=== PATIENT | male | born 1960 | race Caucasian/White ===

== ENCOUNTER 2020-04-14 16:19 | Inpatient (IN) | payer BC, OTHER ==
[~2020-04-14] VITALS: Ht 193 cm; Wt 125.6 kg
--- NOTE | 2020-04-14 16:27 | NUR ---
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
--- NOTE | 2020-04-14 16:35 | NUR ---
THIS IS A 60 YO M W/ C/O INTERMITTENT CP X2 DAYS RADIATING DOWN LT ARM. PT DENIES CARDIAC HX/HOME MEDS. PT REPORTS MILD SOB ASSOCIATED W/ CP. PT REPORTS TAKING 3 ASPIRIN TODAY W/ SOME RELIEF. PT RESTING ON GURNEY W/ CALL LIGHT IN REACH, SIDE RAILS UPX2. TYLER MONTENEGRO AT BEDSIDE FOR ED EVAL.
--- NOTE | 2020-04-14 16:43 | NUR ---
PT TO RAD.
[2020-04-14] MEDS ORDERED: SODIUM CHLORIDE FLUSH 10ML SYR IVF ONE (17:00)
--- NOTE | 2020-04-14 17:04 | NUR ---
PIV STARTED, LABS DRAWN. PT RESTING ON [employer] W/ CALL LIGHT IN REACH, VSS, DILMA.
[2020-04-14 17:13] LABS: BASOPHILS % (AUTO) 0 % (0-1); EOSINOPHILS % (AUTO) 2 % (1-7); LYMPHOCYTES % (AUTO) 17 % (22-44); MEAN CORPUSCULAR HEMOGLOBIN 32.2 pg (27.5-34.5); MEAN CORPUSCULAR HGB CONC 34.3 g/dL (33.2-36.2); MEAN PLATELET VOLUME 9.7 fL (7.4-10.4); MONOCYTES % (AUTO) 7 % (2-9); NEUTROPHILS % (AUTO) 73 % (42-75); PLATELET COUNT 170 x10^3/uL (130-400); RED BLOOD COUNT 5.55 x10^6/uL (4.38-5.82)
[2020-04-14 17:15] LABS: MD NO
[2020-04-14 17:22] LABS: ALANINE AMINOTRANSFERASE 37 U/L (12-78); ALBUMIN 3.9 g/dL (3.4-5.0); ANION GAP 4 mmol/L (5-15); CALCIUM 9.2 mg/dL (8.5-10.1); CHLORIDE 107 mmol/L (98-107); CREATININE 1.04 mg/dL (0.7-1.3)
[2020-04-14 17:27] LABS: ALKALINE PHOSPHATASE 59 U/L (45-117); TOTAL PROTEIN 7.5 g/dL (6.4-8.2)
[2020-04-14 17:32] LABS: TROPONIN I 0.746 ng/mL (0.000-0.045)
[2020-04-14] MEDS ORDERED: HEPARIN 5,000 UNITS/ML, 1ML ONE (17:58)
[2020-04-14] MEDS ORDERED: HEPARIN 25,000 UNITS/250ML PMX 250 ML ONE (17:58)
--- NOTE | 2020-04-14 18:00 | NUR ---
PT UPDATED ON POC FOR ADMIT.
--- NOTE | 2020-04-14 18:12 | NUR ---
HEPARIN STARTED PER PROTOCOL. PT RESTING ON GURNEY W/ CALL LIGHT IN REACH, VSS, NADN.
[2020-04-14] MEDS ORDERED: HEPARIN 25,000 UNITS/250ML PMX 250 ML IV PRN (18:30)
[2020-04-14] MEDS ORDERED: HEPARIN 5,000 UNITS/ML, 1ML IV PRN (18:30)
[2020-04-14] MEDS ORDERED: HEPARIN 5,000 UNITS/ML, 1ML IV ONE (18:30)
--- NOTE | 2020-04-14 18:57 | NUR ---
REPORT GIVEN TO HIRAM HOBBS. PT RESTING ON GURNEY W/ CALL LIGHT IN REACH, VSS, NADN. HEPARIN INFUSING PER PROTOCOL AT 10ML HR OR 1000 UNITS/HR. PT AWAITING ADMIT.
--- NOTE | 2020-04-14 19:26 | NUR ---
PT RESTING ON [place], UPDATED ON POC. CALL LIGHT WITHIN REACH, MONITORING IN PLACE.
[2020-04-14] MEDS ORDERED: CYCLOBENZAPRINE 10 MG TABLET PO PRN (20:30)
[2020-04-14] MEDS ORDERED: morphine SULFATE 10 MG/ML, 1ML IV PRN (20:30)
[2020-04-14] MEDS ORDERED: ONDANSETRON 2MG/ML, 2ML IVPush PRN (20:30)
[2020-04-14] MEDS ORDERED: ACETAMINOPHEN 325 MG TABLET PO PRN (20:30)
[2020-04-14] MEDS ORDERED: MELATONIN 5 MG TABLET PO PRN (20:30)
[2020-04-14] MEDS ORDERED: NITROGLYCERIN 0.4 MG BOTTLE (25 TABS) SL PRN (20:30)
[2020-04-14] MEDS ORDERED: ENALAPRILAT 1.25 MG/ML, 2ML IVPush PRN (20:30)
[2020-04-14 20:38] VITALS: BP 162/103
[2020-04-14] MEDS ORDERED: THIAMINE 200 MG in SODIUM CHLORIDE 0.9% 50 ML IV ONE (21:00)
[2020-04-14 23:26] LABS: TROPONIN I 0.877 ng/mL (0.000-0.045)
[2020-04-15 01:48] VITALS: BP 109/64
[2020-04-15 05:31] LABS: ANION GAP 4 mmol/L (5-15); CHLORIDE 110 mmol/L (98-107)
[2020-04-15 05:32] LABS: BASOPHILS % (AUTO) 1 % (0-1); EOSINOPHILS % (AUTO) 3 % (1-7); LYMPHOCYTES % (AUTO) 32 % (22-44); MEAN CORPUSCULAR HEMOGLOBIN 32.3 pg (27.5-34.5); MEAN CORPUSCULAR HGB CONC 34.3 g/dL (33.2-36.2); MEAN PLATELET VOLUME 9.4 fL (7.4-10.4); MONOCYTES % (AUTO) 8 % (2-9); NEUTROPHILS % (AUTO) 56 % (42-75); PLATELET COUNT 148 x10^3/uL (130-400); RED BLOOD COUNT 5.26 x10^6/uL (4.38-5.82); RED CELL DISTRIBUTION WIDTH 13.1 % (9.4-14.8)
[2020-04-15 05:38] LABS: CHOL/HDL RATIO 3.3; CHOLESTEROL, TOTAL 204 mg/dL (140-239); HDL CHOL % 30 % (26-37); HDL CHOLESTEROL (DIRECT) 61 mg/dL (40-60); LDL CHOLESTEROL,CALCULATED 112 mg/dL (54-169); LDL/HDL RATIO 1.8 (0.5-3.0); TRIGLYCERIDES 154 mg/dL (50-200); TROPONIN I 0.949 ng/mL (0.000-0.045); VLDL CHOLESTEROL 31 mg/dL (0-25)
[2020-04-15 05:43] LABS: MD NO
[2020-04-15] MEDS ORDERED: ASPIRIN 325 MG TABLET EC PO SCH (06:00)
[2020-04-15 07:54] VITALS: BP 123/90
[2020-04-15] MEDS: METOPROLOL SUCCINATE 25 MG TAB.ER.24H PO SCH (09:00)
[2020-04-15] MEDS ORDERED: FENTANYL PF 100 MCG/2ML ONE (10:01)
[2020-04-15] MEDS ORDERED: MIDAZOLAM 1 MG/ML, 5ML ONE (10:01)
[2020-04-15] MEDS ORDERED: TICAGRELOR 90 MG TABLET ONE (10:02)
[2020-04-15] MEDS ORDERED: LIDOCAINE-MPF 1%, 5ML ONE (10:02)
[2020-04-15] MEDS ORDERED: BIVALIRUDIN 250 MG ONE ×2 (10:02→10:45)
[2020-04-15] MEDS ORDERED: HEPARIN 1,000 UNITS/ML, 10ML ONE (10:02)
[2020-04-15] MEDS ORDERED: VERAPAMIL 2.5 MG/ML, 2ML ONE (10:02)
[2020-04-15] MEDS: SODIUM CHLORIDE 0.9% 1,000 ML IV SCH ×2 (11:30→21:36)
[2020-04-15 12:41] VITALS: BP 126/84
[2020-04-15 18:48] VITALS: BP 131/87
[2020-04-15] MEDS: TICAGRELOR 90 MG TABLET PO SCH (21:35)
[2020-04-15] MEDS: ATORVASTATIN 80 MG TABLET PO SCH (21:35)
[2020-04-16 01:20] VITALS: BP 110/65
[2020-04-16] MEDS: SODIUM CHLORIDE 0.9% 1,000 ML IV SCH (02:46)
[2020-04-16 05:58] VITALS: BP 111/78
[2020-04-16] MEDS: METOPROLOL SUCCINATE 25 MG TAB.ER.24H PO SCH (06:02)
[2020-04-16 07:05] VITALS: BP 111/69
[2020-04-16 09:09] LABS: ANION GAP 10 mmol/L (5-15); CALCIUM 9.2 mg/dL (8.5-10.1); CHLORIDE 110 mmol/L (98-107); CREATININE 0.92 mg/dL (0.7-1.3)
[2020-04-16] MEDS: TICAGRELOR 90 MG TABLET PO SCH ×2 (09:17→20:41)
[2020-04-16] MEDS: ASPIRIN 81 MG TABLET EC PO SCH (09:17)
[2020-04-16 13:18] VITALS: BP 110/80
[2020-04-16 20:40] VITALS: BP 121/77
[2020-04-16] MEDS: ATORVASTATIN 80 MG TABLET PO SCH (20:41)
[2020-04-17 03:08] VITALS: BP 121/78
[2020-04-17 07:11] VITALS: BP 125/84
[2020-04-17] MEDS: ASPIRIN 81 MG TABLET EC PO SCH (10:11)
[2020-04-17] MEDS: TICAGRELOR 90 MG TABLET PO SCH (10:11)
[2020-04-17] MEDS: METOPROLOL SUCCINATE 25 MG TAB.ER.24H PO SCH (10:11)
[2020-04-17] MEDS ORDERED: ASPI81TA45 PO (10:31)
[2020-04-17] MEDS ORDERED: METO25TA91 PO (10:31)
[2020-04-17] MEDS ORDERED: TICA90TA PO (10:31)
[2020-04-17] MEDS ORDERED: ATOR-2 PO (10:31)
== END 2020-04-17 16:41 | disposition home or self-care (01) | DRG 247 ==
LOC: ED 18:38 → EDIP 18:59 → 5SO 20:14
PROVIDERS: ADMIT Family Medicine; ATTEND Hospitalist
PROC: 027034Z Dilation of Coronary Artery, One Artery with Drug-eluting Intraluminal Device, Percutaneous Approach (ICD-10-PCS; principal; 2020-04-15)
PROC: 4A023N7 Measurement of Cardiac Sampling and Pressure, Left Heart, Percutaneous Approach (ICD-10-PCS; 2020-04-15)
PROC: B2111ZZ Fluoroscopy of Multiple Coronary Arteries using Low Osmolar Contrast (ICD-10-PCS; 2020-04-15)
DX: I21.4 Non-ST elevation (NSTEMI) myocardial infarction (principal); E11.9 Type 2 diabetes mellitus without complications; E66.9 Obesity, unspecified; I10 Essential (primary) hypertension; E78.5 Hyperlipidemia, unspecified; F10.10 Alcohol abuse, uncomplicated; J45.20 Mild intermittent asthma, uncomplicated; Z87.891 Personal history of nicotine dependence; Z68.33 Body mass index [BMI] 33.0-33.9, adult
CPT/HCPCS: 36415; 93458; C8929; C9600; 71046; 80048; 80053; 80061; 83735; 84484; 85025; 85520; 93005; 99156; 99157; 99291; C1769; C1894; G0378; J0583; J1644; J2250; J3010; J3411; Q9957; C1725; C1874; C1887; Q9967

== ENCOUNTER 2021-02-20 08:49 | Outpatient (CLI) | payer BC ==
[~2021-02-20 08:49] MED LIST: ASPI81TA45 PO; ATOR-2 PO; METO25TA91 PO; TICA90TA PO
== END 2021-02-20 23:59 | disposition home or self-care (01) ==
LOC: CVU 08:49
PROVIDERS: ATTEND Internal Medicine Clinical Cardiac Electrophysiology
DX: I11.9 Hypertensive heart disease without heart failure (principal); I42.9 Cardiomyopathy, unspecified
CPT/HCPCS: 93306